=== PATIENT | male | born 1990 | race Caucasian/White ===

== ENCOUNTER 2024-10-29 01:20 | Emergency (ER) | payer BC | END 2024-10-29 02:09 | disposition home or self-care (01) | LOC: ERS 01:20 | DX: L03.113 Cellulitis of right upper limb (principal) | CPT/HCPCS: 99283 ==

== ENCOUNTER 2024-12-26 09:11 | Emergency (ER) | payer BC | END 2024-12-26 10:04 | disposition home or self-care (01) | LOC: ERS 09:11 | DX: S82.51XK Displaced fracture of medial malleolus of right tibia, subsequent encounter for closed fracture with nonunion (principal); F17.210 Nicotine dependence, cigarettes, uncomplicated; X58.XXXD Exposure to other specified factors, subsequent encounter | CPT/HCPCS: 99283 ==